=== PATIENT | male | born 1975 | race Caucasian/White ===

== ENCOUNTER → 2018-11-29 | Outpatient (CLI) | payer BC ==
--- NOTE | 2018-11-29 11:16 | REP ---
Left rib series: Six views including PA chest. History: Pain. Findings: PA chest radiograph shows no evidence of infiltrate, pneumothorax, or pleural effusion. Mediastinum is not widened. Heart size is normal. The lung houser are clear. Multiple views of the left rib cage show intact left ribs. No rib fracture is seen. No bony destructive lesion is appreciated. Impression: Negative left rib series. Electronically Signed by Julius Greer MD 11/29/2018 11:08 A
[2018-11-29 13:03] LABS: ALBUMIN 4.3 GM/DL (3.2-5.2); ALT/SGPT 64 U/L (12-78); BILIRUBIN,TOTAL 0.5 MG/DL (0.2-1.0); BLOOD UREA NITROGEN 15 MG/DL (7-18); CARBON DIOXIDE LEVEL 29 MEQ/L (21-32); CHLORIDE LEVEL 107 MEQ/L (98-107); CHOLESTEROL LEVEL 197 MG/DL (<200); CREATININE FOR GFR 1.08 MG/DL (0.70-1.30); FREE T4 1.11 NG/DL (0.76-1.46); GLOMERULAR FILTRATION RATE > 60.0 (>60); GLUCOSE, FASTING 101 MG/DL (70-100); HDL CHOLESTEROL 50 MG/DL (>40); LDL CHOLESTEROL 125 MG/DL (<100); NON-HDL-C 147 MG/DL; POTASSIUM SERUM 4.5 MEQ/L (3.5-5.1); SODIUM LEVEL 142 MEQ/L (136-145); TOTAL PROTEIN 7.3 GM/DL (6.4-8.2); TRIGLYCERIDES LEVEL 110 MG/DL (<150)
[2018-11-29 13:08] LABS: TOTAL 25(OH) VITAMIN D 16.3 NG/ML (30.0-100.0)
== END ==
LOC: M WUC 08:20
PROVIDERS: ATTEND Nurse Practitioner Family
DX: E78.2 Mixed hyperlipidemia (principal)

== ENCOUNTER 2020-02-23 10:34 | Emergency (ER) | payer BC ==
[~2020-02-23] VITALS: Ht 180.3 cm; Wt 108.5 kg
[2020-02-23] MEDS ORDERED: IBUP-1022 PO (10:40)
[2020-02-23] MEDS ORDERED: [UNRECOGNIZED DRUG - REMARK] (10:41)
[2020-02-23] MEDS: ACETAMINOPHEN 325 MG TAB PO ONE (12:49)
[2020-02-23] MEDS: traMADol 50 MG TAB PO ONE (12:49)
--- NOTE | 2020-02-23 13:32 | REP ---
LUMBOSACRAL SPINE: REASON: Back pain. COMPARISON: 12/23/2007 FINDINGS: Five views of the lumbosacral spine show no acute fracture, dislocation or subluxation. The intervertebral disc spaces are symmetric and well maintained. There is no spondylolysis or spondylolisthesis. The pedicles are intact bilaterally and there is no destructive osseous lesion. IMPRESSION: Unremarkable lumbosacral spine series. No significant change from the prior exam. Electronically Signed by Waldo Leone DO 02/23/2020 01:34 P
[2020-02-23] MEDS ORDERED: MEDR4PAK PO (13:34)
[2020-02-23] MEDS ORDERED: ROBA750T4 PO (13:34)
[2020-02-23] MEDS ORDERED: NAPR-837 PO (13:34)
[2020-02-23 13:41] VITALS: BP 131/79
== END 2020-02-23 13:42 | disposition home or self-care (01) ==
LOC: M ED 10:34
DX: S39.012A Strain of muscle, fascia and tendon of lower back, initial encounter (principal); M54.41 Lumbago with sciatica, right side; M54.42 Lumbago with sciatica, left side; X50.9XXA Other and unspecified overexertion or strenuous movements or postures, initial encounter; Y92.096 Garden or yard of other non-institutional residence as the place of occurrence of the external cause; Y93.H9 Activity, other involving exterior property and land maintenance, building and construction; Y99.8 Other external cause status

== ENCOUNTER → 2020-04-08 | Outpatient (REF) | payer BC ==
[~2020-04-08] MED LIST: IBUP-1022 PO; MEDR4PAK PO; NAPR-837 PO; ROBA750T4 PO; [UNRECOGNIZED DRUG - REMARK]
[2020-04-08 11:34] LABS: ALBUMIN 4.3 GM/DL (3.2-5.2); ALT/SGPT 32 U/L (12-78); BILIRUBIN,TOTAL 0.7 MG/DL (0.2-1.0); BLOOD UREA NITROGEN 18 MG/DL (7-18); CALCIUM LEVEL 9.1 MG/DL (8.5-10.1); CARBON DIOXIDE LEVEL 29 MEQ/L (21-32); CHLORIDE LEVEL 105 MEQ/L (98-107); CHOLESTEROL LEVEL 298 MG/DL (<200); CHOLESTEROL RISK RATIO 6.208 (<5); CREATININE FOR GFR 0.99 MG/DL (0.70-1.30); FREE T4 1.16 NG/DL (0.76-1.46); GLOMERULAR FILTRATION RATE > 60.0 (>60); GLUCOSE, FASTING 99 MG/DL (70-100); HDL CHOLESTEROL 48 MG/DL (>40); LDL CHOLESTEROL 201 MG/DL (<100); NON-HDL-C 250 MG/DL; POTASSIUM SERUM 4.4 MEQ/L (3.5-5.1); SODIUM LEVEL 138 MEQ/L (136-145); TOTAL PROTEIN 7.5 GM/DL (6.4-8.2); TRIGLYCERIDES LEVEL 247 MG/DL (<150)
[2020-04-09 18:28] LABS: TOTAL 25(OH) VITAMIN D 22.4 NG/ML (30.0-100.0)
== END ==
LOC: M PLALAB 08:13
PROVIDERS: ATTEND Nurse Practitioner Family
DX: E78.2 Mixed hyperlipidemia (principal); F41.9 Anxiety disorder, unspecified; N52.9 Male erectile dysfunction, unspecified
CPT/HCPCS: 36415; 80053; 80061; 82306; 84439; 84443; G0103

== ENCOUNTER → 2021-05-20 | Outpatient (REF) | payer BC ==
[2021-05-20 12:05] LABS: ALBUMIN 4.2 GM/DL (3.2-5.2); ALT/SGPT 44 U/L (12-78); BILIRUBIN,TOTAL 0.4 MG/DL (0.2-1.0); BLOOD UREA NITROGEN 13 MG/DL (7-18); CARBON DIOXIDE LEVEL 28 MEQ/L (21-32); CHLORIDE LEVEL 108 MEQ/L (98-107); CHOLESTEROL LEVEL 325 MG/DL (<200); CHOLESTEROL RISK RATIO 6.632 (<5); CREATININE FOR GFR 1.02 MG/DL (0.70-1.30); GLOMERULAR FILTRATION RATE > 60.0 (>60); GLUCOSE, FASTING 92 MG/DL (70-100); HDL CHOLESTEROL 49 MG/DL (>40); LDL CHOLESTEROL 228 MG/DL (<100); NON-HDL-C 276 MG/DL; POTASSIUM SERUM 4.7 MEQ/L (3.5-5.1); SODIUM LEVEL 142 MEQ/L (136-145); TOTAL PROTEIN 7.4 GM/DL (6.4-8.2); TRIGLYCERIDES LEVEL 238 MG/DL (<150)
[2021-05-20 12:08] LABS: TOTAL 25(OH) VITAMIN D 22.4 NG/ML (30.0-100.0)
== END ==
LOC: M LABWUC 10:38
PROVIDERS: ATTEND Nurse Practitioner Family
DX: E55.9 Vitamin D deficiency, unspecified (principal); E78.2 Mixed hyperlipidemia

== ENCOUNTER → 2022-02-13 | Outpatient (CLI) | payer BC ==
[2022-02-13 19:57] LABS: ALBUMIN 4.2 GM/DL (3.2-5.2); ALT/SGPT 97 U/L (12-78); BILIRUBIN,TOTAL 0.4 MG/DL (0.2-1.0); BLOOD UREA NITROGEN 19 MG/DL (7-18); CALCIUM LEVEL 9.8 MG/DL (8.5-10.1); CARBON DIOXIDE LEVEL 29 MEQ/L (21-32); CHLORIDE LEVEL 110 MEQ/L (98-107); CHOLESTEROL LEVEL 291 MG/DL (<200); CHOLESTEROL RISK RATIO 7.097 (<5); CREATININE FOR GFR 1.12 MG/DL (0.70-1.30); FREE T4 0.92 NG/DL (0.76-1.46); GLOMERULAR FILTRATION RATE > 60.0 (>60); GLUCOSE, FASTING 95 MG/DL (70-100); HDL CHOLESTEROL 41 MG/DL (>40); NON-HDL-C 250 MG/DL; SODIUM LEVEL 144 MEQ/L (136-145); TOTAL PROTEIN 7.4 GM/DL (6.4-8.2); TRIGLYCERIDES LEVEL 457 MG/DL (<150)
[2022-02-13 19:59] LABS: TOTAL 25(OH) VITAMIN D 14.3 NG/ML (30.0-100.0)
== END ==
LOC: M WUC 15:38
PROVIDERS: ATTEND Nurse Practitioner Family
DX: E78.2 Mixed hyperlipidemia (principal); E55.9 Vitamin D deficiency, unspecified

== ENCOUNTER → 2023-02-02 | Outpatient (CLI) | payer BC ==
[2023-02-02 12:02] LABS: HEMATOCRIT 46.3 % (42.0-52.0); HEMOGLOBIN 15.3 g/dl (13.5-17.5); MEAN CORPUSCULAR HEMOGLOBIN 30.1 pg (27.0-33.0); MEAN CORPUSCULAR VOLUME 91.1 fl (80.0-96.0); PLATELET COUNT, AUTOMATED 232 10^3/uL (150-450); RED BLOOD COUNT 5.08 10^6/uL (4.30-6.10); WHITE BLOOD COUNT 6.5 10^3/uL (4.0-10.0)
[2023-02-02 12:21] LABS: THYROID STIMULATING HORMONE 1.933 uIU/ML (0.55-4.78)
[2023-02-02 12:22] LABS: TOTAL 25(OH) VITAMIN D 84.4 NG/ML (20.0-100.0)
[2023-02-02 12:23] LABS: VITAMIN B12 LEVEL 473 PG/ML (211-911)
[2023-02-02 12:25] LABS: ALKALINE PHOSPHATASE 44 U/L (46-116); ALT/SGPT 70 U/L (7.0-40); AST/SGOT 22 U/L (<34); BILIRUBIN,TOTAL 0.8 MG/DL (0.3-1.2); BLOOD UREA NITROGEN 15 MG/DL (9-23); CALCIUM LEVEL 8.7 MG/DL (8.5-10.1); CARBON DIOXIDE LEVEL 28 MMOL/L (20-31); CHLORIDE LEVEL 105 MMOL/L (98-107); CHOLESTEROL LEVEL 184 MG/DL (<200); CHOLESTEROL RISK RATIO 3.73 (<5); GLOMERULAR FILTRATION RATE > 60.0 (>60); GLUCOSE, FASTING 86 MG/DL (60-100); HDL CHOLESTEROL 49.3 MG/DL (>40); LDL CHOLESTEROL 105.3 MG/DL (<100); NON-HDL-C 134.7 MG/DL; SODIUM LEVEL 141 MMOL/L (136-145); TOTAL PROTEIN 5.9 G/DL (5.7-8.2); TRIGLYCERIDES LEVEL 147 MG/DL (<150)
[2023-02-02 15:45] LABS: HEMOGLOBIN A1c 5.8 % (4.0-6.0)
== END ==
LOC: M WUC 08:25
PROVIDERS: ATTEND Internal Medicine Hematology
DX: N52.9 Male erectile dysfunction, unspecified (principal); E55.9 Vitamin D deficiency, unspecified; E78.2 Mixed hyperlipidemia

== ENCOUNTER → 2023-10-01 | Outpatient (CLI) | payer OTHER ==
[~2023-10-01] MED LIST changes: +ASPI81CH33 PO; +ATOR80TA59 PO; +NEUR100C PO; +VITAD400CA PO
[2023-10-01 17:45] LABS: C REACTIVE PROTEIN QUANTITATIV < 0.40 MG/DL (<1.0)
[2023-10-01 17:46] LABS: CREATININE, URINE 243.1 MG/DL; MALB URINE SIEMENS < 3.0 MG/L; MAU/CREAT RATIO 1.2 MCG/MG (0.0-30.0)
[2023-10-01 17:48] LABS: ALBUMIN 4.4 G/DL (3.2-5.2); ALKALINE PHOSPHATASE 50 U/L (46-116); ALT/SGPT 84 U/L (7.0-40); AST/SGOT 31 U/L (<34); BILIRUBIN,TOTAL 0.6 MG/DL (0.3-1.2); BLOOD UREA NITROGEN 15 MG/DL (9-23); CALCIUM LEVEL 9.4 MG/DL (8.5-10.1); CARBON DIOXIDE LEVEL 29 MMOL/L (20-31); CHLORIDE LEVEL 107 MMOL/L (98-107); CHOLESTEROL LEVEL 171 MG/DL (<200); GLOMERULAR FILTRATION RATE > 60.0 (>60); GLUCOSE, FASTING 104 MG/DL (60-100); HDL CHOLESTEROL 47.4 MG/DL (>40); HEMATOCRIT 46.5 % (42.0-52.0); HEMOGLOBIN 15.9 g/dl (13.5-17.5); LDL CHOLESTEROL 75.6 MG/DL (<100); MEAN CORPUSCULAR HEMOGLOBIN 31.1 pg (27.0-33.0); MEAN CORPUSCULAR HGB CONC 34.2 g/dl (32.0-36.5); NON-HDL-C 123.6 MG/DL; PLATELET COUNT, AUTOMATED 251 10^3/uL (150-450); POTASSIUM SERUM 4.5 MMOL/L (3.5-5.1); RED BLOOD COUNT 5.11 10^6/uL (4.30-6.10); SODIUM LEVEL 142 MMOL/L (136-145); TOTAL PROTEIN 7.3 G/DL (5.7-8.2); TRIGLYCERIDES LEVEL 240 MG/DL (<150); WHITE BLOOD COUNT 7.6 10^3/uL (4.0-10.0)
[2023-10-01 17:49] LABS: THYROID STIMULATING HORMONE 2.406 uIU/ML (0.55-4.78); TOTAL 25(OH) VITAMIN D 43.6 NG/ML (20.0-100.0); VITAMIN B12 LEVEL 530 PG/ML (211-911)
[2023-10-01 18:37] LABS: HEMOGLOBIN A1c 5.7 % (4.0-6.0)
== END ==
LOC: M WUC 11:36
PROVIDERS: ATTEND Internal Medicine Hematology
DX: E78.2 Mixed hyperlipidemia (principal)

== ENCOUNTER 2024-07-08 06:14 | Emergency (ER) | payer OTHER ==
[~2024-07-08] VITALS: Ht 172.7 cm; Wt 110.5 kg
[2024-07-08 06:14] VITALS: BP 161/96; TEMP 96.9; O2SAT 97
== END 2024-07-08 08:28 | disposition left against medical advice (07) ==
LOC: M ED 06:14
DX: Z53.21 Procedure and treatment not carried out due to patient leaving prior to being seen by health care provider (principal)

== ENCOUNTER → 2024-08-15 | Outpatient (CLI) | payer OTHER ==
[2024-08-15 19:52] LABS: ALBUMIN 4.1 G/DL (3.2-5.2); ALKALINE PHOSPHATASE 52 U/L (40-129); ALT/SGPT 67 U/L (7.0-40); AST/SGOT 23 U/L (<34); BILIRUBIN,TOTAL 0.5 MG/DL (0.3-1.2); BLOOD UREA NITROGEN 13 MG/DL (9-23); CALCIUM LEVEL 9.9 MG/DL (8.5-10.1); CARBON DIOXIDE LEVEL 30 MMOL/L (20-31); CHLORIDE LEVEL 108 MMOL/L (98-107); CHOLESTEROL LEVEL 201 MG/DL (<200); CHOLESTEROL RISK RATIO 4.71 (<5); CREATININE FOR GFR 1.06 MG/DL (0.70-1.30); GLOMERULAR FILTRATION RATE > 60.0 (>60); GLUCOSE, FASTING 98 MG/DL (60-100); HDL CHOLESTEROL 42.6 MG/DL (>40); LDL CHOLESTEROL 103.6 MG/DL (<100); NON-HDL-C 158.4 MG/DL; POTASSIUM SERUM 4.3 MMOL/L (3.5-5.1); SODIUM LEVEL 143 MMOL/L (136-145); TOTAL PROTEIN 7.3 G/DL (5.7-8.2); TRIGLYCERIDES LEVEL 274 MG/DL (<150)
[2024-08-15 20:07] LABS: HEMOGLOBIN A1c 5.8 % (4.0-6.0)
== END ==
LOC: M PLALAB 14:29
PROVIDERS: ATTEND Family Medicine
DX: Z00.00 Encounter for general adult medical examination without abnormal findings (principal); E66.9 Obesity, unspecified; Z68.34 Body mass index [BMI] 34.0-34.9, adult; L91.8 Other hypertrophic disorders of the skin; F51.04 Psychophysiologic insomnia; F41.1 Generalized anxiety disorder; F33.1 Major depressive disorder, recurrent, moderate; E78.2 Mixed hyperlipidemia

== ENCOUNTER 2024-12-12 11:37 | Day surgery (SDC) | payer OTHER ==
[~2024-12-12] VITALS: Ht 180.3 cm; Wt 108.0 kg
[~2024-12-12 11:37] MED LIST changes: +LEXA1TAB PO
[2024-12-12] MEDS ORDERED: propofoL 200 MG/20 ML VIAL As Ordered ONE (12:57)
[2024-12-12 13:10] VITALS: TEMP 97.5
[2024-12-12 13:35] VITALS: BP 125/73; O2SAT 94
== END 2024-12-12 13:35 | disposition home or self-care (01) ==
LOC: M OPP 11:37
PROVIDERS: ATTEND Surgery
DX: Z12.11 Encounter for screening for malignant neoplasm of colon (principal); D12.5 Benign neoplasm of sigmoid colon; Z80.0 Family history of malignant neoplasm of digestive organs; G47.30 Sleep apnea, unspecified; Z79.899 Other long term (current) drug therapy

== ENCOUNTER → 2025-01-15 | Outpatient (CLI) | payer OTHER ==
[2025-01-15 14:22] LABS: BASO % 0.3 % (0.0-1.0); EOS # 0.2 10^3/uL (0.0-0.5); EOS % 2.5 % (0.0-3.0); HEMATOCRIT 45.8 % (42.0-52.0); HEMOGLOBIN 15.5 g/dl (13.5-17.5); LYMPH # 2.8 10^3/uL (1.5-5.0); MEAN CORPUSCULAR HEMOGLOBIN 30.1 pg (27.0-33.0); MEAN CORPUSCULAR HGB CONC 33.8 g/dl (32.0-36.5); MEAN CORPUSCULAR VOLUME 88.9 fl (80.0-96.0); MONO # 0.6 10^3/uL (0.0-0.8); MONO % 7.7 % (2.0-8.0); NEUTROPHILS # 4.1 10^3/uL (1.5-8.5); NEUTROPHILS % 53.2 % (36.0-66.0); PLATELET COUNT, AUTOMATED 248 10^3/uL (150-450); RED BLOOD COUNT 5.15 10^6/uL (4.30-6.10); WHITE BLOOD COUNT 7.7 10^3/uL (4.0-10.0)
[2025-01-15 14:41] LABS: ALBUMIN 4.4 G/DL (3.2-5.2); ALKALINE PHOSPHATASE 45 U/L (40-129); ALT/SGPT 58 U/L (7.0-40); AST/SGOT 19 U/L (<34); BILIRUBIN,TOTAL 0.7 MG/DL (0.3-1.2); BLOOD UREA NITROGEN 14 MG/DL (9-23); CALCIUM LEVEL 9.3 MG/DL (8.5-10.1); CARBON DIOXIDE LEVEL 29 MMOL/L (20-31); CHLORIDE LEVEL 106 MMOL/L (98-107); CREATININE FOR GFR 0.97 MG/DL (0.70-1.30); GLOMERULAR FILTRATION RATE > 60.0 (>60); GLUCOSE, FASTING 95 MG/DL (60-100); POTASSIUM SERUM 4.1 MMOL/L (3.5-5.1); SODIUM LEVEL 142 MMOL/L (136-145); THYROXINE (T4) 8.5 UG/DL (4.5-10.9); TOTAL PROTEIN 7.4 G/DL (5.7-8.2)
[2025-01-15 14:42] LABS: THYROID STIMULATING HORMONE 2.995 uIU/ML (0.55-4.78)
[2025-01-15 14:44] LABS: FREE THYROXINE INDEX 2.6 % (1.4-3.8); T UPTAKE 30.4 % (22.5-37.0)
== END ==
LOC: M WUC 12:00
PROVIDERS: ATTEND Student in an Organized Health Care Education/Training Program
DX: R53.83 Other fatigue (principal)

== ENCOUNTER 2025-03-06 10:49 | Day surgery (SDC) | payer OTHER ==
[~2025-03-06] VITALS: Ht 180.3 cm; Wt 106.7 kg
[2025-03-06] MEDS ORDERED: propofoL 200 MG/20 ML VIAL As Ordered ONE (13:01)
[2025-03-06 13:05] VITALS: TEMP 97
[2025-03-06 13:24] VITALS: BP 105/65; O2SAT 96
== END 2025-03-06 13:32 | disposition home or self-care (01) ==
LOC: M OPP 10:49
PROVIDERS: ATTEND Surgery
DX: K64.0 First degree hemorrhoids (principal); Z86.0100 Personal history of colon polyps, unspecified; G47.30 Sleep apnea, unspecified; Z79.899 Other long term (current) drug therapy